=== PATIENT | male | born 1990 | race Caucasian/White ===

== ENCOUNTER 2016-12-19 15:34 | Emergency (ER) | payer OTHER ==
[~2016-12-19] VITALS: Ht 188 cm; Wt 95.6 kg
[~2016-12-19 15:34] MED LIST: DEPAKOTE500 MG PO; GEODON60 MG PO; PREDNISONE20 MG PO; PROAIR HFA8.5 GM IH; VIRTUSSIN AC L473 ML PO; ZITHROMAX Z-PA250 MG PO; ZOFRAN ODT4 MG PO
[2016-12-19] MEDS ORDERED: KEFLEX500 MG PO (17:36)
[2016-12-19] MEDS ORDERED: BACTRIM,SEPT1 TABLET PO (17:36)
[2016-12-19 18:27] VITALS: BP 121/65
== END 2016-12-19 18:29 | disposition home or self-care (01) ==
LOC: EME 15:34
PROC: 0H96XZZ Drainage of Back Skin, External Approach (ICD-10-PCS; principal; 2016-12-19)
DX: L02.212 Cutaneous abscess of back [any part, except buttock and flank] (principal)
CPT/HCPCS: 99281; 99284

== ENCOUNTER 2016-12-28 09:13 | Inpatient (IN) | payer OTHER ==
[~2016-12-28] VITALS: Ht 188 cm; Wt 98.2 kg
[~2016-12-28 09:13] MED LIST changes: +BACTRIM,SEPT1 TABLET PO; +DEPAKOTE250 MG PO; -DEPAKOTE500 MG PO; +KEFLEX500 MG PO
[2016-12-28 10:17] LABS: HEMATOCRIT 31.3 % (38.0-50.0); MCH 30.7 PG (29.0-34.0); MCHC 35.8 G/DL (30.0-36.0); MCV 85.8 FL (86-99); PLATELET COUNT 98 K/uL (156-360); RBC DIS.WIDTH-CV 12.4 % (11.8-14.6); RBC DIS.WIDTH-SD 38.9 % (39-53); RED BLOOD COUNT 3.65 M/uL (4.00-5.50); WHITE BLOOD COUNT 3.6 K/uL (4.1-10.2)
[2016-12-28 10:28] LABS: CHLORIDE 97 mEq/L (99-109); POTASSIUM 4.1 mEq/L (3.7-5.4); SODIUM 125 mEq/L (136-147)
[2016-12-28 10:31] LABS: GLUCOSE 94 mg/dL (70-99)
[2016-12-28 10:32] LABS: ANION GAP 10 MEQ/L (2-14)
[2016-12-28 10:33] LABS: TOTAL BILIRUBIN 0.4 mg/dL (0.0-1.0)
[2016-12-28 10:34] LABS: ALKALINE PHOSPHATASE 82 IU/L (3-129); GFR ESTIMATE (CALCULATED) 48 mL/min/
[2016-12-28 10:35] LABS: UREA NITROGEN (BUN) 13 mg/dL (9-23)
[2016-12-28 12:11] LABS: EOSINOPHIL (%) 14.5 % (0-5); EOSINOPHIL COUNT 0.5 K/uL (0-0.3); IMMATURE GRANULOCYTE (%) 0.6 % (0.0-0.7); INSTRUMENT ABS NEUTROPHIL CT 1.9 K/uL; LYMPHOCYTE COUNT 0.8 K/uL (1.0-2.8); MONOCYTE (%) 7.4 % (3-12); MONOCYTE COUNT 0.3 K/uL (0-0.8); NEUTROPHIL (%) 53.6 % (45-76); NEUTROPHIL COUNT 1.9 K/uL (1.8-6.4)
[2016-12-28 12:27] LABS: LIPASE 14 U/L (1.0-51.0)
[2016-12-28 13:09] LABS: ADD MIUA? YES; BILIRUBIN NEGATIVE; BLOOD NEGATIVE; COLOR YELLOW ((YELLOW)); GLUCOSE (STRIP) NEGATIVE; KETONES NEGATIVE; LEUKOCYTES NEGATIVE; NITRITE NEGATIVE; PROTEIN (STRIP) NEGATIVE; SPECIFIC GRAVITY 1.013 (1.000-1.030); UROBILINOGEN 0.2 MG/DL (0.2-1.0)
[2016-12-28 13:18] LABS: BACTERIA 1+ /HPF; EPITHELIAL CELLS NONE SEEN /HPF; MUCUS TRACE /LPF; RED BLOOD CELLS 0-5 /HPF (0-5); URIC ACID CRYSTALS 1+ /HPF; WHITE BLOOD CELLS 0-5 /HPF (0-5)
[2016-12-28] MEDS ORDERED: HALDOL10 MG PO ×2 (13:58→13:59)
[2016-12-28] MEDS ORDERED: COGENTIN1 MG PO (13:59)
[2016-12-28] MEDS ORDERED: TYLENOL EXTRA500 MG PO (14:00)
[2016-12-28] MEDS ORDERED: ADVIL200 MG PO (14:00)
[2016-12-28 15:14] VITALS: BP 115/67
[2016-12-28 19:56] VITALS: BP 110/64
[2016-12-28 20:28] VITALS: BP 96/55
[2016-12-28 23:25] VITALS: BP 125/69
[2016-12-29 03:36] VITALS: BP 110/69
[2016-12-29 06:02] LABS: HEMATOCRIT 29.8 % (38.0-50.0); MCH 31.3 PG (29.0-34.0); MCHC 35.2 G/DL (30.0-36.0); MCV 88.7 FL (86-99); MEAN PLAT.VOLUME 10.1 uM^3 (9.0-12.4); PLATELET COUNT 92 K/uL (156-360); RBC DIS.WIDTH-CV 13.4 % (11.8-14.6); RBC DIS.WIDTH-SD 43.7 % (39-53); RED BLOOD COUNT 3.36 M/uL (4.00-5.50); WHITE BLOOD COUNT 2.6 K/uL (4.1-10.2)
[2016-12-29 07:15] LABS: ANION GAP 6 MEQ/L (2-14); CHLORIDE 110 MEQ/L (99-109); GLUCOSE 82 mg/dL (70-99); POTASSIUM 4.5 MEQ/L (3.7-5.4); SAMPLE HEMOLYSIS CHECK 0; SAMPLE ICTERIC CHECK 0; SAMPLE LIPEMIA CHECK 0; UREA NITROGEN (BUN) 5 mg/dL (9-23)
[2016-12-29 07:16] LABS: GFR ESTIMATE (CALCULATED) > 59 mL/min/; SODIUM 140 MEQ/L (136-147)
[2016-12-29 07:41] VITALS: BP 116/62
[2016-12-29 11:28] VITALS: BP 117/57
[2016-12-29 12:56] LABS: CHLORIDE 112 mEq/L (99-109); POTASSIUM 4.5 mEq/L (3.7-5.4); SODIUM 140 mEq/L (136-147)
[2016-12-29 12:59] LABS: ANION GAP 5 MEQ/L (2-14)
[2016-12-29 13:02] LABS: GFR ESTIMATE (CALCULATED) > 59 mL/min/; GLUCOSE 115 mg/dL (70-99)
[2016-12-29 13:03] LABS: UREA NITROGEN (BUN) 5 mg/dL (9-23)
[2016-12-29 16:06] VITALS: BP 119/67
[2016-12-29 19:39] VITALS: BP 112/65
[2016-12-29 23:36] VITALS: BP 115/68
[2016-12-30 03:25] VITALS: BP 115/72
[2016-12-30 05:32] LABS: HEMATOCRIT 31.5 % (38.0-50.0); MCH 30.3 PG (29.0-34.0); MCV 89.2 FL (86-99); NRBC (%) 0.6 /100 WBC (0-0); PLATELET COUNT 92 K/uL (156-360); RBC DIS.WIDTH-CV 13.7 % (11.8-14.6); RBC DIS.WIDTH-SD 45.1 % (39-53); RED BLOOD COUNT 3.53 M/uL (4.00-5.50)
[2016-12-30 08:25] VITALS: BP 126/65
[2016-12-30 11:51] VITALS: BP 126/74
[2016-12-30] MEDS ORDERED: DIVALPROEX SOD500 MG PO (12:12)
[2016-12-30] MEDS ORDERED: HYDROXYZINE PAM25 MG PO (12:13)
[2016-12-30] MEDS ORDERED: HALDOL5 MG PO (12:13)
[2016-12-30 13:14] LABS: ANION GAP 9 MEQ/L (2-14); CHLORIDE 106 MEQ/L (99-109); SAMPLE HEMOLYSIS CHECK 0; SAMPLE ICTERIC CHECK 0; SAMPLE LIPEMIA CHECK 0; SODIUM 141 MEQ/L (136-147); TOTAL BILIRUBIN 0.5 MG/DL (0.0-1.0)
[2016-12-30 13:20] LABS: ALKALINE PHOSPHATASE 88 IU/L (3-129); GFR ESTIMATE (CALCULATED) > 59 mL/min/; GLUCOSE 160 mg/dL (70-99); UREA NITROGEN (BUN) 4 mg/dL (9-23)
== END 2016-12-30 13:15 | disposition home or self-care (01) | DRG 809 ==
LOC: EME 09:13 → EDOF 13:32 → 5SOUTH 13:32 → ENRESERV 13:36 → EDOF 13:36 → ENRESERV 13:49 → 5SOUTH 14:21 → ENPENDDIS 12-30 → 5SOUTH 12-30 13:15
PROVIDERS: Internal Medicine; Nurse Practitioner Adult Health; Nurse Practitioner Family
DX: D61.818 Other pancytopenia (principal); R50.9 Fever, unspecified; F25.0 Schizoaffective disorder, bipolar type; R19.7 Diarrhea, unspecified; Z87.891 Personal history of nicotine dependence; N17.9 Acute kidney failure, unspecified; K59.00 Constipation, unspecified; E87.2 Acidosis; E87.1 Hypo-osmolality and hyponatremia; F22 Delusional disorders; E83.51 Hypocalcemia; R13.10 Dysphagia, unspecified; D72.1 Eosinophilia; R21 Rash and other nonspecific skin eruption; T37.0X5A Adverse effect of sulfonamides, initial encounter; R63.4 Abnormal weight loss
CPT/HCPCS: 70360; 71020; 74220; 80048; 80048 91; 80053; 80306 90; 81003; 82607; 82746; 83605; 83690; 85025; 85027; 86735; 87040; 87081; 87651 90; 92610 GN; 99202; 99281; 99285; J1885; J2543; J3370; J7030; Q0177